=== PATIENT | female | born 1990 | race Caucasian/White ===

== ENCOUNTER 2016-03-04 13:44 | Inpatient (IN) | payer BC, OTHER ==
[~2016-03-04] VITALS: Ht 165.1 cm; Wt 88.6 kg
[2016-03-04] VITALS (10 sets, daily range): BP systolic 113–134; BP diastolic 54–77
[2016-03-04 15:20] LABS: EOSINOPHIL (%) 0.4 % (0-5); EOSINOPHIL COUNT 0.1 K/uL (0-0.3); HEMATOCRIT 33.1 % (36.0-46.0); IMMATURE GRANULOCYTE (%) 1.1 % (0.0-0.7); IMMATURE GRANULOCYTE COUNT 0.2 K/uL; LYMPHOCYTE COUNT 2.6 K/uL (1.0-2.8); MCH 27.5 PG (29.0-34.0); MCHC 32.9 G/DL (30.0-36.0); MCV 83.6 FL (83-99); MEAN PLAT.VOLUME 9.7 uM^3 (9.5-12.4); MONOCYTE (%) 6.6 % (3-12); MONOCYTE COUNT 1.1 K/uL (0-0.8); NEUTROPHIL (%) 75.1 % (45-76); NEUTROPHIL COUNT 11.9 K/uL (1.8-6.4); PLATELET COUNT 223 K/uL (156-360); RBC DIS.WIDTH-CV 14.7 % (11.8-14.6); RBC DIS.WIDTH-SD 44.9 % (39-53); RED BLOOD COUNT 3.96 M/uL (3.80-5.20); WHITE BLOOD COUNT 15.8 K/uL (4.1-10.2)
[2016-03-04] MEDS ORDERED: ENDOCET 5-3251 EACH PO (20:36)
[2016-03-04] MEDS ORDERED: IBUPROFEN800 MG PO (20:36)
[2016-03-05 04:15] VITALS: BP 111/60
[2016-03-05 22:47] VITALS: BP 111/53
[2016-03-06 07:26] VITALS: BP 98/66
== END 2016-03-06 15:30 | disposition home or self-care (01) | DRG 775 ==
LOC: LDRP-OP 13:44 → 2WEST 13:45
PROVIDERS: Midwife
DX: O70.1 Second degree perineal laceration during delivery (principal); O48.0 Post-term pregnancy; O69.81X0 Labor and delivery complicated by cord around neck, without compression, not applicable or unspecified; O99.824 Streptococcus B carrier state complicating childbirth; Z3A.40 40 weeks gestation of pregnancy; Z37.0 Single live birth
CPT/HCPCS: 85025; J0290; J0595; J7050; J7120